=== PATIENT | male | born 1960 | race Caucasian/White ===

== ENCOUNTER 2019-06-25 15:27 | Inpatient (IN) | payer MEDICARE, SELFPAY ==
[2019-06-25 15:28] VITALS: BP 122/74; PULSE 59; RESP 17; TEMP 36.9; O2SAT 96; BMI 36.9
--- NOTE | 2019-06-25 16:01 | ED.DCSUM_ITS ---
History of Present Illness Chief Complaint: Cellulitis Informant: Patient Narrative: She states that began to experience some right lower leg erythema on this past Tuesday. Today swelling and redness are significantly worse and they talk to their doctor and had a DVT study performed that was reportedly negative. They had a video conference with her doctor and it was advised that they come to emergency. Patient notes he does have some surgical hardware in the ankle but is never been a problem for him. He denies any recent injuries or breaks in the skin. He denies any fevers but states he has felt chilled today. This morning there were no blisters on the leg and now it is weeping with multiple blisters developing. He has redness of his proximal thigh but states it is not any different than normal. Past Medical History - Allergies and Home Meds Allergies/Adverse Reactions: Allergies clindamycin HCl [From Cleocin] Adverse Reaction (Verified 06/25/19 15:27) Rash clindamycin palmitate HCl [From Cleocin] Adverse Reaction (Verified 06/25/19 15:27) Rash clindamycin phosphate [From Cleocin] Adverse Reaction (Verified 06/25/19 15:27) Rash Primary Care Physician: Ana Pope DO [Primary Care Provider] - Smoking Status: Former smoker Review of Systems General: Reports: Chills. Denies: Fever, Sweats Eyes: Denies: Visual changes - bilaterally, Diplopia ENT: Denies: Rhinorrhea, Sore throat Cardiovascular: Denies: Chest pain, Palpitations Respiratory: Denies: Dyspnea, Cough, Dyspnea on exertion Gastrointestinal: Denies: Abdominal pain, Nausea, Vomiting, Diarrhea, Melena, Hematochezia Genitourinary: Denies: Dysuria, Hematuria, Frequency Musculoskeletal: Denies: Back pain, Extremity Pain Skin: Reports: Rash, Wounds Neurological: Denies: Headache, Weakness, Numbness Physical Exam Vital Signs/Narrative: Vital Signs Temp Pulse Resp BP Pulse Ox 06/25/19 15:28 98.5 F 59 L 17 122/74 H 96 Inital Vital Signs reviewed: Yes General: Well nourished, Well developed, No Acute Distress Head: Normocephalic, Atraumatic Eyes: Perrl, EOMI ENT: Moist mucous membranes, No rhinorrhea Neck: Supple, Nontender Cardiovascular: Regular rate, Regular rhythm, No murmurs Respiratory: No distress, CTA bilaterally, Chest nontender Abdomen: Soft, Nontender, Nondistended, Normal bowel sounds Back: Nontender, Normal Inspection Extremities: Nontender, No edema Skin: Normal color, - - The right lower leg shows significant swelling. There is also erythema and warmth. There is fluctuant blisters developing and there is leaking of clear fluid. Proximal right thigh shows also erythema but again the patient states this is normal for him. Neurological: Alert, Oriented x3, Cranial nerves II-XII grossly intact Psychological: Normal affect, Normal Mood Diagnostic/Tx/Re-eval - Medical Decision Making The patient seems to have a rapidly progressing cellulitis of the right leg. He received vancomycin and Zosyn. I am in agreement with his PCP that the patient should be admitted for IV antibiotics. Blood cultures were obtained prior to administration. ED Disposition - Plan for ED Patient: Disposition: Acute Care Hospital [facility] Diagnosis: Cellulitis of right leg Referrals: Ana Pope DO [Primary Care Provider] -
[2019-06-25 16:20] LABS: Absolute Lymphocyte Count 0.79 X10^3/uL (0.83-4.51); Absolute Neutrophil Count 6.2 X10^3/uL (2.0-7.7); Basophil# 0.01 X10^3/uL; Basophil% 0.1 % (0-1); Eosinophil# 0.08 X10^3/uL; Hematocrit 37.2 % (40-54); Hemoglobin 12.2 g/dL (13.0-16.5); Lymphocyte # 0.79 X10^3/ul (4.0); Lymphocyte % 9.5 % (19-41); Mean Corp Hgb Conc 32.8 g/dL (32-36); Mean Corpuscular Hgb 30.1 pg (27.0-32.0); Mean Corpuscular Volume 91.9 fL (80-94); Mean Platelet Vol. 10.3 fl (6.2-12.0); Monocyte# 1.18 X10^3/uL; Monocyte% 14.1 % (0-10); NRBC Flagged by Analyzer 0 % (0-5); Neutrophil # 6.24 X10^3/uL (2.7-7.7); Neutrophil % 74.8 % (47-70); Platelet Count 177 K/mm3 (150-450); RBC Distribution Width CV 13.9 % (11.6-14.6); RBC Distribution Width SD 46.8 fl (35.1-43.9); Red Blood Count 4.05 M/mm3 (4.6-6.2); White Blood Count 8.3 K/mm3 (4.4-11.0)
--- NOTE | 2019-06-25 16:30 | RAD_ITS ---
STUDY: X-RAY - RIGHT TIBIA AND FIBULA REASON FOR EXAM: Male, 59 years old. Cellulitis to right leg. Pt c/o redness and swelling to right leg with blisters opening and draining. Reports symptoms starting . TECHNIQUE: 3 view(s) of the tibia and fibula were obtained. COMPARISON: None. FINDINGS: Normal visualized tibia. Normal visualized fibula. Visualized superficial soft tissue edema from the level of the distal femur to the ankle. There is no visualized bony erosion. There is a side plate and cortical screws transfixing the distal fibula. RAD/Tibia & Fibula 2 Views IMPRESSION: Diffuse soft tissue edema consider cellulitis. Electronically Signed: Amber Ibarra MD at 17:11 EDT Tel , Service support ,
[2019-06-25 16:35] LABS: International Normalized Ratio 1.2
[2019-06-25 16:36] LABS: Partial Thromboplast Time 33.5 Seconds (24.1-36.2)
[2019-06-25 16:38] LABS: ALB/GLOB Ratio 0.7 RATIO (0.9-2.4); AST(SGOT) 39 U/L (15-37); Alanine Aminotransfer ALT/SGPT 51 U/L (16-61); Alkaline Phosphatase 76 U/L (45-117); Anion Gap 5 (5-15); BUN 13 mg/dL (7-18); BUN/Creat Ratio 11.1 RATIO (10-20); Calcium,Total 9.2 mg/dL (8.5-10.1); Chloride 100 mmol/L (98-107); Creatinine, Serum 1.17 mg/dL (0.70-1.30); EST Glomerular Filtration Rate 68 mL/min (>60); Est Glom Filt Rate - Afr Amer 82 mL/min (>60); Estimated Creatinine Clearance 64.96 ml/min; Globulin 4.6 g/dL (2.2-4.2); Glucose 103 mg/dL (74-106); Protein, Total 7.6 g/dL (6.4-8.2); Sodium Level 136 mmol/L (136-145)
[2019-06-25 16:42] LABS: Lactic Acid 1.2 mmol/L (0.4-1.9)
[2019-06-25 16:48] VITALS: BP 116/68; PULSE 56; RESP 20; TEMP 37; O2SAT 99
[2019-06-25 17:00] VITALS: BP 123/76; PULSE 62; RESP 18; O2SAT 93
--- NOTE | 2019-06-25 17:33 | HP.PCM_ITS ---
<Radha Larios - Last Filed: 06/25/19 18:16> Problem List (1) HTN (hypertension) Status: Chronic (2) HLD (hyperlipidemia) Status: Chronic (3) Seizure Status: Chronic (4) CVA (cerebral vascular accident) Status: Chronic History of Present Illness Date of Admission: 06/25/19 Chief Complaint: Cellulitis. The patient is a 59 year old M who presents emergency room due to right lower extremity erythema, swelling and redness. Patient initially reported right lower extremity redness on which has increased in severity since that time. He did a video call with primary care provider today who ordered duplex ultrasound right lower extremity which was negative for DVT. Upon assessing via video, physician advised patient to go to emergency room for IV antibiotics. Patient's at bedside states right lower extremity has significantly worsened today with sudden appearance of blistering and drainage. Right lower extremity redness extends to upper thigh. He has had fever, chills which started today. Denies nausea, vomiting. Denies other associated complaints. He denies injury to right lower extremity. He does have a history of right ankle surgery with plate in the past. 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 Past Medical History Past Medical History (Chronic Problems): Chronic Problems HTN (hypertension) (Chronic) HLD (hyperlipidemia) (Chronic) Seizure (Chronic) CVA (cerebral vascular accident) (Chronic) Allergies clindamycin HCl [From Cleocin] Adverse Reaction (Verified 06/25/19 15:27) Rash clindamycin palmitate HCl [From Cleocin] Adverse Reaction (Verified 06/25/19 15:27) Rash clindamycin phosphate [From Cleocin] Adverse Reaction (Verified 06/25/19 15:27) Rash Home Medications: Ambulatory Orders Medication Instructions Recorded Cefdinir 300 mg PO BID 07/02/14 Clonidine HCl [Catapres] 0.2 mg PO BID 07/02/14 Lisinopril/Hydrochlorothiazide 1 tablet PO BID 07/02/14 [Zestoretic 20/12.5 Tablet] Metoprolol Tartrate [Lopressor 50 mg PO DAILY 07/02/14 (Beta Aaron)] Phenytoin Na [Dilantin] 300 mg PO DAILY 07/02/14 Nifedipine [Nifedipine ER] 30 mg PO DAILY 06/25/19 Phenytoin Sodium Extended 100 mg PO QHS 06/25/19 [Dilantin] Potassium Chloride [Klor-Con M20] 20 meq PO BID 06/25/19 Rosuvastatin Calcium 5 mg PO DAILY 06/25/19 Venlafaxine XR [Effexor Xr] 75 mg PO DAILY 06/25/19 Surgical History: - - Right ankle surgery, craniotomy. Lives: Spouse/ Significant Other Smoking Status: Never smoker Alcohol: Occasional Drugs: None - *Family History Maternal History Items: - - No known maternal medical history including cardiac history. Paternal History Items: Heart Disease Review of Systems Constitutional: Reports: Chills, Fever HEENT: Denies: Head Aches, Sinus Congestion, Sinus Drainage Cardiovascular: Denies: Chest Pain, Palpitations Respiratory: Denies: Cough, Shortness of breath at rest, Sputum production Gastrointestinal: Denies: Abdominal Pain, Nausea, Vomiting Genitourinary: Denies: Dysuria Musculoskeletal: Denies: Joint Pain, Joint Tenderness Skin: Reports: - - Right lower extremity redness, swelling and blistering. Neurological: Reports: - - Chronic right-sided weakness and aphasia following previous CVA.. Denies: Focal weakness, Numbness, Tingling Psychiatric: Reports: Depression Hematologic/ Lymphatic: Denies: Easy Bruising, Easy Bleeding VTE Information - Inpt Only VTE Present on Admission: No VTE Mechan Device Prophylaxis: None VTE Pharm Prophylaxis ordered?: Yes - Physical Exam Vitals/I&O's: Vital Signs Temp Pulse Resp BP Pulse Ox 98.6 F 56 L 20 H 116/68 99 06/25/19 16:48 06/25/19 16:48 06/25/19 16:48 06/25/19 16:48 06/25/19 16:48 Oxygen Delivery Method Room Air Weight: 242 lb 15.19 oz Body Mass Index (BMI) 36.9 Intake and Output for Last 24 Hours 06/23/19 06/24/19 06/25/19 23:59 23:59 23:59 Intake Total 100 / 100 Balance 100 / 100 General: Alert, Oriented x3, Cooperative HEENT: Atraumatic, PERRLA, EOMI, Normocephalic Neck: Supple, No JVD, Negative Carotid Bruits Lungs: Clear to auscultation, Normal air movement Cardiovascular: Regular rate, Regular Rhythm, Normal S1, Normal S2, No murmurs Abdomen: Bowel Sounds Present, Soft, Non Tender, Non-Distended Extremities: No clubbing, No cyanosis, Edema - Right lower extremity Skin: - - Diffuse right lower extremity with few bullae, drainage. Redness extending to right upper thigh. Musculoskeletal: No Tenderness to Palpation of Joints or Extremities Neurological: Cranial nerves II-XII grossly intact, Neuro grossly intact, - - RLE weakness, chronic. Aphasia. Psych/Mental Status: Normal Affect, Appropriate Laboratory Results 06/25/19 16:02: WBC 8.3, RBC 4.05 L, Hgb 12.2 L, Hct 37.2 L, MCV 91.9, MCH 30.1, MCHC 32.8, RDW Std Deviation 46.8 H, RDW Coeff of Juju 13.9, Plt Count 177, MPV 10.3, Immature Gran % (Auto) 0.500, Neut % (Auto) 74.8 H, Lymph % (Auto) 9.5 L, [place] % (Auto) 14.1 H, Eos % (Auto) 1.0, Baso % (Auto) 0.1, Absolute Neuts (auto) 6.2, Absolute Lymphs (auto) 0.79 L, Nucleated RBC % 0 06/25/19 16:02: PT 15.0 H, INR 1.2, APTT 33.5 06/25/19 16:02: Sodium 136, Potassium 4.0, Chloride 100, Carbon Dioxide 31.0, Anion Gap 5, BUN 13, Creatinine 1.17, Estim Creat Clear Calc 64.96, Est GFR (MDRD) Af Amer 82, Est GFR (MDRD) Non-Af 68, BUN/Creatinine Ratio 11.1, Glucose 103, Calcium 9.2, Total Bilirubin 0.20, AST 39 H, ALT 51, Alkaline Phosphatase 76, Total Protein 7.6, Albumin 3.0 L, Globulin 4.6 H, Albumin/Globulin Ratio 0.7 L 06/25/19 16:02: Lactic Acid 1.2 Current Medications Vancomycin HCl 2,000 mg/ (Sodium Chloride) 540 mls @ 250 mls/hr IV X1 ONE Stop: 06/25/19 18:39 Last Admin: 06/25/19 17:27 Dose: 250 mls/hr Documented by: Assessment/Plan All Active Problems Cellulitis of right leg (Acute) 1. Right lower extremity cellulitis-outpatient duplex ultrasound negative for DVT. Tib/Fib xray shows soft tissue edema, cellulitis. Afebrile, no leukocytosis. IV vancomycin and IV Zosyn. Wound culture from bullae pending. Blood cultures pending. Elevate right lower extremity. Luis wraps right lower extremity. Consult wound RN. 2. 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 Continue BP regimen, statin. 3. 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 Continue home Dilantin regimen. 4. Hypertension-stable, continue clonidine, lisinopril, HCTZ, metoprolol, nifedipine regimen. 5. Hyperlipidemia-continue statin. 6. Depression-continue venlafaxine regimen. DVT prophylaxis-Lovenox subcu This patient was seen by VERITO Higuera under the supervision of Dr. Jabier osullivan. <Paintsil,[place] - Last Filed: 06/25/19 18:37> History of Present Illness The patient is a 59 year old M [] Past Medical History Allergies clindamycin HCl [From Cleocin] Adverse Reaction (Verified 06/25/19 15:27) Rash clindamycin palmitate HCl [From Cleocin] Adverse Reaction (Verified 06/25/19 15:27) Rash clindamycin phosphate [From Cleocin] Adverse Reaction (Verified 06/25/19 15:27) Rash - Physical Exam Vitals/I&O's: Vital Signs Temp Pulse Resp BP Pulse Ox 98.2 F 65 16 122/69 H 96 06/25/19 18:23 06/25/19 18:23 06/25/19 18:23 06/25/19 18:23 06/25/19 18:23 Oxygen Delivery Method Room Air Weight: 110.2 kg Body Mass Index (BMI) 36.9 Intake and Output for Last 24 Hours 06/23/19 06/24/19 06/25/19 23:59 23:59 23:59 Intake Total 100 / 100 Balance 100 / 100 Laboratory Results 06/25/19 16:02: WBC 8.3, RBC 4.05 L, Hgb 12.2 L, Hct 37.2 L, MCV 91.9, MCH 30.1, MCHC 32.8, RDW Std Deviation 46.8 H, RDW Coeff of Juju 13.9, Plt Count 177, MPV 10.3, Immature Gran % (Auto) 0.500, Neut % (Auto) 74.8 H, Lymph % (Auto) 9.5 L, [place] % (Auto) 14.1 H, Eos % (Auto) 1.0, Baso % (Auto) 0.1, Absolute Neuts (auto) 6.2, Absolute Lymphs (auto) 0.79 L, Nucleated RBC % 0 06/25/19 16:02: PT 15.0 H, INR 1.2, APTT 33.5 06/25/19 16:02: Sodium 136, Potassium 4.0, Chloride 100, Carbon Dioxide 31.0, Anion Gap 5, BUN 13, Creatinine 1.17, Estim Creat Clear Calc 64.96, Est GFR (MDRD) Af Amer 82, Est GFR (MDRD) Non-Af 68, BUN/Creatinine Ratio 11.1, Glucose 103, Calcium 9.2, Total Bilirubin 0.20, AST 39 H, ALT 51, Alkaline Phosphatase 76, Total Protein 7.6, Albumin 3.0 L, Globulin 4.6 H, Albumin/Globulin Ratio 0.7 L 06/25/19 16:02: Lactic Acid 1.2 Current Medications Vancomycin HCl 2,000 mg/ (Sodium Chloride) 540 mls @ 250 mls/hr IV X1 ONE Stop: 06/25/19 18:39 Last Admin: 06/25/19 17:27 Dose: 250 mls/hr Documented by: Assessment/Plan This patient was seen in conjunction with Radha Larios NP. I have independently interviewed and examined the patient and reviewed pertinent historical, laboratory, and other data. Please refer to her note for patient's presentation, findings, and recommendations. 59-year-old male with past medical history of CVA in 2003 with residual right hemiparesis, hypertension who comes in with redness of his right lower extremities as well as swelling ongoing for 4 days associated with some chills but no fever. Patient noticed blisters on his lower extremities this morning. Redness appears to have gotten worse. He denied any nausea or vomiting or diarrhea. He had a telehealth visit with his primary care doctor who recommended coming to the hospital. A Doppler ultrasound done the outpatient was negative for acute DVT in the right lower extremity. Vitals were reviewed -temperature is 98.5 F, pulse 59, blood pressure 122/74, respiratory rate of 17 SPO2 is 96% on room air Physical Exam: Gen: Looks in some discomfort, not pale, not jaundiced, alert oriented x3 CVS:HS I +II, regular, no murmurs RESP: CTA GI: BS present and normal, nontender, no palpable organs EXT:Edema of the right lower leg +4, erythematous, worse in the mid-leg circumferentially, blisters on lower leg, red streaking of the medial aspect of both thighs Labs reviewed: WBC 8.3, neutrophilia, INR 1.2, CMP ASSESSMENT: 1. Severe right leg cellulitis 2. Right hemiparesis secondary to h/o hemorrhagic CVA 3. Post CVA seizure 4. Hypertension 5. Hyperlipidemia 6. Depression Meds reviewed Plan: Continue on vancomycin and Zosyn Elevate right lower extremity Check HbA1c Check phenytoin level Continue rest of home medication for blood pressure and seizure Wound RN consult Follow-up on blood and wound cultures Inpatient E&M: [id number] Init Hosp L3
--- NOTE | 2019-06-25 17:42 | NURSING ---
MED SURG PAINTSIL RT LEG CELLULITIS
[2019-06-25 18:23] VITALS: BP 122/69; PULSE 65; RESP 16; TEMP 36.8; O2SAT 96; BMI 35.8
[2019-06-25 20:00] VITALS: BP 119/85; PULSE 66; RESP 18; TEMP 37.2; O2SAT 99
[2019-06-25 20:04] LABS: Hemoglobin A1c 5.6 % (4.2-6.3)
--- NOTE | 2019-06-25 20:07 | PCM.RX.CS ---
Consult Pharmacy has been consulted to manage selected antiobiotic: Vancomycin Type of Consult: New start Suspected Infection: Skin/Soft tissue Prior Doses of Antibiotics Received/Current Regimen: VANCOMYCIN 2000MG IV X1 IN ED 06/25/19 @1727 Labs: Sodium 136 mmol/L (136-145) 06/25/19 16:02 Potassium 4.0 mmol/L (3.5-5.1) 06/25/19 16:02 Chloride 100 mmol/L (98-107) 06/25/19 16:02 Carbon Dioxide 31.0 mmol/L (21.0-32.0) 06/25/19 16:02 Anion Gap 5 (5-15) 06/25/19 16:02 BUN 13 mg/dL (7-18) 06/25/19 16:02 Creatinine 1.17 mg/dL (0.70-1.30) 06/25/19 16:02 Est GFR (MDRD) Af Amer 82 mL/min (>60) 06/25/19 16:02 Est GFR (MDRD) Non-Af 68 mL/min (>60) 06/25/19 16:02 BUN/Creatinine Ratio 11.1 RATIO (10-20) 06/25/19 16:02 Glucose 103 mg/dL (74-106) 06/25/19 16:02 Weight used for dosin kg Estimated Creatinine Clearance: 65 ML/MIN Goal Trough: 15-20 mcg/mL Pharmacy Plan for Drug Dosing: PLAN/RECOMMENDATIONS 1. Vancomycin 1250mg IV Q12hr to start 06/26/19 @0500 2. Trough prior to 4th total dose per protocol 06/27/19 @0430 3. Pharmacy Service will continue to monitor and adjust dosing as required.
[2019-06-25] MEDS: Phenytoin Na 100 MG Capsule PO (21:22)
[2019-06-25] MEDS: cloNIDine HCl 0.2 MG Tablet PO (21:22)
[2019-06-25] MEDS: hydroCHLOROthiazide 12.5mg 12.5 MG PO (21:23)
[2019-06-25] MEDS: Atorvastatin Calcium 10 MG Tablet PO (21:23)
[2019-06-25] MEDS: Lisinopril 20 MG Tablet PO (21:23)
[2019-06-26 02:00] VITALS: BP 95/57; PULSE 65; RESP 18; TEMP 37.3; O2SAT 97
[2019-06-26 06:00] VITALS: BP 102/72
[2019-06-26 06:29] LABS: Absolute Neutrophil Count 5.2 X10^3/uL (2.0-7.7); Basophil# 0.02 X10^3/uL; Basophil% 0.3 % (0-1); Eosinophil# 0.18 X10^3/uL; Eosinophils% 2.4 % (0-5); Hematocrit 33.7 % (40-54); Hemoglobin 11.3 g/dL (13.0-16.5); Lymphocyte % 13.3 % (19-41); Mean Corp Hgb Conc 33.5 g/dL (32-36); Mean Corpuscular Hgb 30.8 pg (27.0-32.0); Mean Corpuscular Volume 91.8 fL (80-94); Mean Platelet Vol. 10.5 fl (6.2-12.0); Monocyte# 1.03 X10^3/uL; Monocyte% 13.7 % (0-10); NRBC Flagged by Analyzer 0 % (0-5); Neutrophil # 5.22 X10^3/uL (2.7-7.7); Neutrophil % 69.6 % (47-70); Platelet Count 144 K/mm3 (150-450); RBC Distribution Width SD 46.8 fl (35.1-43.9); Red Blood Count 3.67 M/mm3 (4.6-6.2); White Blood Count 7.5 K/mm3 (4.4-11.0)
[2019-06-26 06:57] LABS: ALB/GLOB Ratio 0.6 RATIO (0.9-2.4); AST(SGOT) 29 U/L (15-37); Alanine Aminotransfer ALT/SGPT 43 U/L (16-61); Albumin, Serum 2.5 g/dL (3.2-5.0); Alkaline Phosphatase 75 U/L (45-117); Anion Gap 6 (5-15); BUN 11 mg/dL (7-18); Calcium,Total 8.8 mg/dL (8.5-10.1); Chloride 105 mmol/L (98-107); Creatinine, Serum 0.74 mg/dL (0.70-1.30); EST Glomerular Filtration Rate 116 mL/min (>60); Est Glom Filt Rate - Afr Amer 140 mL/min (>60); Globulin 4.2 g/dL (2.2-4.2); Glucose 102 mg/dL (74-106); Protein, Total 6.7 g/dL (6.4-8.2); Sodium Level 138 mmol/L (136-145)
[2019-06-26 09:00] VITALS: BP 107/61; PULSE 70; RESP 18; TEMP 36.9; O2SAT 96
[2019-06-26] MEDS: Phenytoin Na 100 MG Capsule 300 MG PO (09:02)
[2019-06-26 09:03] VITALS: BP 107/61; PULSE 70
[2019-06-26] MEDS: Venlafaxine XR 75 MG Capsule PO (09:03)
[2019-06-26] MEDS: NIFEdipine 30 MG Tablet PO (09:04)
[2019-06-26] MEDS: Lisinopril 20 MG Tablet PO ×2 (09:04→21:14)
[2019-06-26] MEDS: Enoxaparin 40 MG/0.4 ML Syringe SC (09:04)
[2019-06-26] MEDS: hydroCHLOROthiazide 12.5mg 12.5 MG PO ×2 (09:04→21:14)
--- NOTE | 2019-06-26 09:07 | NURSING ---
wound photo: right lower leg
--- NOTE | 2019-06-26 09:07 | NURSING ---
wound photo: right lower leg
--- NOTE | 2019-06-26 09:52 | PCM.PROGNOTE ---
<Radha Larios - Last Filed: 06/26/19 10:02> Patient Problems: Active and Suspected Problems Cellulitis of right leg (Acute) Subjective: Patient seen and examined. Denies fever, chills. Right lower extremity redness and swelling improving. No other complaints. - Physical Exam Vitals/I&O's: Vital Signs Temp Pulse Resp BP Pulse Ox 99.1 F 70 18 107/61 97 06/26/19 02:00 06/26/19 09:03 06/26/19 02:00 06/26/19 09:03 06/26/19 02:00 Oxygen Delivery Method Room Air Weight: 233 lb 7.512 oz Body Mass Index (BMI) 35.8 Intake and Output for Last 24 Hours 06/24/19 06/25/19 06/26/19 23:59 23:59 23:59 Intake Total 640 / 1140 1075 / 1075 Output Total 1700 / 1700 Balance 640 / -10 -625 / -625 General: Alert, Oriented x3, Cooperative HEENT: Atraumatic, PERRLA, EOMI, Normocephalic Neck: Supple, No JVD, Negative Carotid Bruits Lungs: Clear to auscultation, Normal air movement Cardiovascular: Regular rate, Regular Rhythm, Normal S1, Normal S2, No murmurs Abdomen: Bowel Sounds Present, Soft, Non Tender Extremities: No clubbing, No cyanosis, Capillary Refill Less than 3 Seconds, Edema - RLE Skin: No rashes, No breakdown, - - Diffuse right lower extremity redness with few bullae, drainage. Upper thigh redness improving. Musculoskeletal: No Tenderness to Palpation of Joints or Extremities Neurological: Cranial nerves II-XII grossly intact, Neuro grossly intact, - - RLE weakness, chronic. Aphasia. Psych/Mental Status: Normal Affect, Appropriate Laboratory Results 06/25/19 16:02: WBC 8.3, RBC 4.05 L, Hgb 12.2 L, Hct 37.2 L, MCV 91.9, MCH 30.1, MCHC 32.8, RDW Std Deviation 46.8 H, RDW Coeff of Juju 13.9, Plt Count 177, MPV 10.3, Immature Gran % (Auto) 0.500, Neut % (Auto) 74.8 H, Lymph % (Auto) 9.5 L, Childress % (Auto) 14.1 H, Eos % (Auto) 1.0, Baso % (Auto) 0.1, Absolute Neuts (auto) 6.2, Absolute Lymphs (auto) 0.79 L, Nucleated RBC % 0 06/25/19 16:02: PT 15.0 H, INR 1.2, APTT 33.5 06/25/19 16:02: Sodium 136, Potassium 4.0, Chloride 100, Carbon Dioxide 31.0, Anion Gap 5, BUN 13, Creatinine 1.17, Estim Creat Clear Calc 64.96, Est GFR (MDRD) Af Amer 82, Est GFR (MDRD) Non-Af 68, BUN/Creatinine Ratio 11.1, Glucose 103, Calcium 9.2, Total Bilirubin 0.20, AST 39 H, ALT 51, Alkaline Phosphatase 76, Total Protein 7.6, Albumin 3.0 L, Globulin 4.6 H, Albumin/Globulin Ratio 0.7 L 06/25/19 16:02: Lactic Acid 1.2 06/25/19 16:02: Phenytoin 7.0 L 06/25/19 16:02: Hemoglobin A1c 5.6 06/26/19 05:57: WBC 7.5, RBC 3.67 L, Hgb 11.3 L, Hct 33.7 L, MCV 91.8, MCH 30.8, MCHC 33.5, RDW Std Deviation 46.8 H, RDW Coeff of Juju 14.0, Plt Count 144 L, MPV 10.5, Immature Gran % (Auto) 0.700, Neut % (Auto) 69.6, Lymph % (Auto) 13.3 L, Childress % (Auto) 13.7 H, Eos % (Auto) 2.4, Baso % (Auto) 0.3, Absolute Neuts (auto) 5.2, Absolute Lymphs (auto) 1.00, Nucleated RBC % 0 06/26/19 05:57: Sodium 138, Potassium 4.0, Chloride 105, Carbon Dioxide 27.0, Anion Gap 6, BUN 11, Creatinine 0.74, Estim Creat Clear Calc 102.70, Est GFR (MDRD) Af Amer 140, Est GFR (MDRD) Non-Af 116, BUN/Creatinine Ratio 15.0, Glucose 102, Calcium 8.8, Total Bilirubin 0.40, AST 29, ALT 43, Alkaline Phosphatase 75, Total Protein 6.7, Albumin 2.5 L, Globulin 4.2, Albumin/Globulin Ratio 0.6 L 06/26/19 07:55: S.aureus Protein A PCR Pending, MRSA (PCR) Pending Current Medications Acetaminophen (Tylenol) 650 mg PO Q6H PRN PRN PRN Reason: Pain Score 1-10/Temp > 100.7 F Atorvastatin Calcium (Lipitor) 10 mg PO QHS [facility] Last Admin: 06/25/19 21:23 Dose: 10 mg Documented by: Clonidine (Catapres) 0.2 mg PO BID [facility] Last Admin: 06/26/19 09:02 Dose: Not Given Documented by: Dextrose (D50w Syringe) 0 gm IV X1 PRN; Protocol PRN Reason: Hypoglycemia Enoxaparin Sodium (Lovenox) 40 mg SC DAILY [facility] Last Admin: 06/26/19 09:04 Dose: 40 mg Documented by: Glucagon () 1 mg IM .X1 PRN PRN Reason: Hypoglycemia Hydrochlorothiazide () 12.5 mg PO BID [facility] Last Admin: 06/26/19 09:04 Dose: 12.5 mg Documented by: Vancomycin IV Pharmacy to Dose (1 ea/ Sodium Chloride) 500 mls @ 250 mls/hr IV PRN PRN; Protocol PRN Reason: Rx to Dose Piperacillin Sod/Tazobactam (Sod 3.375 gm/ Sodium Chloride) 50 mls @ 12.5 mls/hr IV Q8 [facility] Last Admin: 06/26/19 06:35 Dose: 12.5 mls/hr Documented by: Vancomycin HCl 1,250 mg/ (Sodium Chloride) 275 mls @ 167 mls/hr IV Q12H [facility] Last Infusion: 06/26/19 06:36 Dose: Infused Documented by: Lisinopril (Zestril) 20 mg PO BID [facility] Last Admin: 06/26/19 09:04 Dose: 20 mg Documented by: Magnesium Hydroxide (Milk Of Magnesia) 30 ml PO DAILY PRN PRN PRN Reason: Constipation Metoprolol Tartrate (Lopressor (Beta Aaron)) 50 mg PO DAILY [facility] Last Admin: 06/26/19 09:03 Dose: Not Given Documented by: Nifedipine (Procardia Xl) 30 mg PO DAILY [facility] Last Admin: 06/26/19 09:04 Dose: 30 mg Documented by: Nitroglycerin (Nitrostat) 0.4 mg SUBLINGUAL Q5M PRN PRN Reason: CARDIAC/CHEST PAIN Nutritional Formula (Lactose Free) (Ensure Enlive) 120 ml PO 4X/DAY [facility] Last Admin: 06/26/19 09:05 Dose: Not Given Documented by: Ondansetron HCl (Zofran) 4 mg IV Q8H PRN PRN PRN Reason: NAUSEA/VOMITING Phenytoin Sodium (Dilantin) 300 mg PO DAILY [facility] Last Admin: 06/26/19 09:02 Dose: 300 mg Documented by: Phenytoin Sodium (Dilantin) 100 mg PO QHS [facility] Last Admin: 06/25/19 21:22 Dose: 100 mg Documented by: Potassium Chloride (K-Dur) 20 meq PO BIDCM [facility] Last Admin: 06/26/19 09:01 Dose: 20 meq Documented by: Psyllium Hydrophilic Mucilloid (Metamucil) 1 packet PO DAILY PRN PRN PRN Reason: Constipation Sodium Chloride () 10 - 40 ml IV UD PRN PRN Reason: SALINE FLUSH Venlafaxine HCl (Effexor Xr) 75 mg PO DAILY [facility] Last Admin: 06/26/19 09:03 Dose: 75 mg Documented by: Medical Necessity - Tobacco Use Smoking Status: Never smoker Tobacco Use: Chew Assessment/Plan All Active Problems Cellulitis of right leg (Acute) 1. Right lower extremity cellulitis-outpatient duplex ultrasound negative for DVT. Tib/Fib xray shows soft tissue edema, cellulitis. Afebrile, no leukocytosis. IV vancomycin and IV Zosyn. Wound culture from bullae pending. Blood cultures pending. Elevate right lower extremity. Luis wraps right lower extremity. Consult wound RN. 2. 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 Continue BP regimen, statin. 3. 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 Continue home Dilantin regimen. 4. Hypertension-stable, continue clonidine, lisinopril, HCTZ, metoprolol, nifedipine regimen. 5. Hyperlipidemia-continue statin. 6. Depression-continue venlafaxine regimen. DVT prophylaxis-Lovenox subcu This patient was seen by VERITO Higuera under the supervision of Dr. Howell. <Devonte Howell - Last Filed: 06/26/19 14:07> - Physical Exam Vitals/I&O's: Vital Signs Temp Pulse Resp BP Pulse Ox 36.9 C 70 18 107/61 96 06/26/19 09:00 06/26/19 09:03 06/26/19 09:00 06/26/19 09:03 06/26/19 09:00 Oxygen Delivery Method Room Air Weight: 105.9 kg Body Mass Index (BMI) 35.8 Intake and Output for Last 24 Hours 06/24/19 06/25/19 06/26/19 23:59 23:59 23:59 Intake Total 640 / 1140 1425 / 1425 Output Total 1925 / 1925 Balance 640 / -10 -500 / -500 General: Alert, Cooperative HEENT: Atraumatic, Normocephalic Neck: No Nodes, Trachea Midline Lungs: Clear to auscultation, Normal air movement, No rhonchi, No wheeze Cardiovascular: Regular rate, Regular Rhythm, Normal S1, Normal S2, No murmurs Abdomen: Bowel Sounds Present, Soft, Non Tender, Non-Distended Extremities: No clubbing, No cyanosis, Edema Neurological: - Psych/Mental Status: Normal Affect, Appropriate Microbiology Past 72 Hours 06/25/19 16:05 Skin - Leg Gram Stain - Final 06/25/19 16:05 Skin - Leg Wound Culture - Preliminary No growth aerobically. Laboratory Results 06/25/19 16:02: WBC 8.3, RBC 4.05 L, Hgb 12.2 L, Hct 37.2 L, MCV 91.9, MCH 30.1, MCHC 32.8, RDW Std Deviation 46.8 H, RDW Coeff of Juju 13.9, Plt Count 177, MPV 10.3, Immature Gran % (Auto) 0.500, Neut % (Auto) 74.8 H, Lymph % (Auto) 9.5 L, Childress % (Auto) 14.1 H, Eos % (Auto) 1.0, Baso % (Auto) 0.1, Absolute Neuts (auto) 6.2, Absolute Lymphs (auto) 0.79 L, Nucleated RBC % 0 06/25/19 16:02: PT 15.0 H, INR 1.2, APTT 33.5 06/25/19 16:02: Sodium 136, Potassium 4.0, Chloride 100, Carbon Dioxide 31.0, Anion Gap 5, BUN 13, Creatinine 1.17, Estim Creat Clear Calc 64.96, Est GFR (MDRD) Af Amer 82, Est GFR (MDRD) Non-Af 68, BUN/Creatinine Ratio 11.1, Glucose 103, Calcium 9.2, Total Bilirubin 0.20, AST 39 H, ALT 51, Alkaline Phosphatase 76, Total Protein 7.6, Albumin 3.0 L, Globulin 4.6 H, Albumin/Globulin Ratio 0.7 L 06/25/19 16:02: Lactic Acid 1.2 06/25/19 16:02: Phenytoin 7.0 L 06/25/19 16:02: Hemoglobin A1c 5.6 06/26/19 05:57: WBC 7.5, RBC 3.67 L, Hgb 11.3 L, Hct 33.7 L, MCV 91.8, MCH 30.8, MCHC 33.5, RDW Std Deviation 46.8 H, RDW Coeff of Juju 14.0, Plt Count 144 L, MPV 10.5, Immature Gran % (Auto) 0.700, Neut % (Auto) 69.6, Lymph % (Auto) 13.3 L, Childress % (Auto) 13.7 H, Eos % (Auto) 2.4, Baso % (Auto) 0.3, Absolute Neuts (auto) 5.2, Absolute Lymphs (auto) 1.00, Nucleated RBC % 0 06/26/19 05:57: Sodium 138, Potassium 4.0, Chloride 105, Carbon Dioxide 27.0, Anion Gap 6, BUN 11, Creatinine 0.74, Estim Creat Clear Calc 102.70, Est GFR (MDRD) Af Amer 140, Est GFR (MDRD) Non-Af 116, BUN/Creatinine Ratio 15.0, Glucose 102, Calcium 8.8, Total Bilirubin 0.40, AST 29, ALT 43, Alkaline Phosphatase 75, Total Protein 6.7, Albumin 2.5 L, Globulin 4.2, Albumin/Globulin Ratio 0.6 L 06/26/19 07:55: S.aureus Protein A PCR NEGATIVE, MRSA (PCR) Negative Current Medications Acetaminophen (Tylenol) 650 mg PO Q6H PRN PRN PRN Reason: Pain Score 1-10/Temp > 100.7 F Atorvastatin Calcium (Lipitor) 10 mg PO QHS [facility] Last Admin: 06/25/19 21:23 Dose: 10 mg Documented by: Clonidine (Catapres) 0.2 mg PO BID [facility] Last Admin: 06/26/19 09:02 Dose: Not Given Documented by: Dextrose (D50w Syringe) 0 gm IV X1 PRN; Protocol PRN Reason: Hypoglycemia Enoxaparin Sodium (Lovenox) 40 mg SC DAILY [facility] Last Admin: 06/26/19 09:04 Dose: 40 mg Documented by: Glucagon () 1 mg IM .X1 PRN PRN Reason: Hypoglycemia Hydrochlorothiazide () 12.5 mg PO BID [facility] Last Admin: 06/26/19 09:04 Dose: 12.5 mg Documented by: Vancomycin IV Pharmacy to Dose (1 ea/ Sodium Chloride) 500 mls @ 250 mls/hr IV PRN PRN; Protocol PRN Reason: Rx to Dose Piperacillin Sod/Tazobactam (Sod 3.375 gm/ Sodium Chloride) 50 mls @ 12.5 mls/hr IV Q8 [facility] Last Admin: 06/26/19 13:36 Dose: 12.5 mls/hr Documented by: Vancomycin HCl 1,250 mg/ (Sodium Chloride) 275 mls @ 167 mls/hr IV Q12H [facility] Last Infusion: 06/26/19 06:36 Dose: Infused Documented by: Lisinopril (Zestril) 20 mg PO BID [facility] Last Admin: 06/26/19 09:04 Dose: 20 mg Documented by: Magnesium Hydroxide (Milk Of Magnesia) 30 ml PO DAILY PRN PRN PRN Reason: Constipation Metoprolol Tartrate (Lopressor (Beta Aaron)) 50 mg PO DAILY [facility] Last Admin: 06/26/19 09:03 Dose: Not Given Documented by: Nifedipine (Procardia Xl) 30 mg PO DAILY [facility] Last Admin: 06/26/19 09:04 Dose: 30 mg Documented by: Nitroglycerin (Nitrostat) 0.4 mg SUBLINGUAL Q5M PRN PRN Reason: CARDIAC/CHEST PAIN Nutritional Formula (Noah - Santa Claus Flavor) [facility] Ondansetron HCl (Zofran) 4 mg IV Q8H PRN PRN PRN Reason: NAUSEA/VOMITING Phenytoin Sodium (Dilantin) 300 mg PO DAILY [facility] Last Admin: 06/26/19 09:02 Dose: 300 mg Documented by: Phenytoin Sodium (Dilantin) 100 mg PO QHS [facility] Last Admin: 06/25/19 21:22 Dose: 100 mg Documented by: Potassium Chloride (K-Dur) 20 meq PO BIDCM [facility] Last Admin: 06/26/19 09:01 Dose: 20 meq Documented by: Psyllium Hydrophilic Mucilloid (Metamucil) 1 packet PO DAILY PRN PRN PRN Reason: Constipation Sodium Chloride () 10 - 40 ml IV UD PRN PRN Reason: SALINE FLUSH Venlafaxine HCl (Effexor Xr) 75 mg PO DAILY [facility] Last Admin: 06/26/19 09:03 Dose: 75 mg Documented by: Assessment/Plan Patient seen and examined independently. Data reviewed. I agree with the above note by the nurse practitioner. 1. Right lower extremity cellulitis: Area overall appears to be withdraw from the lines of demarcation. Patient does have a very superficial collection of pus on his right boyer. Discussed with the wound care feels that just with continued wound care that that should begin to open up. Continue with broad-spectrum antibiotics for now but anticipate de-escalation here in the near future. Inpatient E&M: 07310 Subs Hosp L2
--- NOTE | 2019-06-26 10:50 | CASEMGMT ---
CLAY CM Face to Face with patient for initial transition planning/care coordination assessment. RN CM introduced self and role at [facility]. Patient lying in bed, alert and oriented. Patient requesting RN CM call to complete assessment. RN CM called Noris and she is willing to participate in assessment. Care providers, pharmacy, and demographics verified. wishes for patient to discharge home, denies need for home health at this time. states she has no further needs or concerns at this time. CM to follow for discharge planning needs that may arise. PCP: Toshia Casillas Pharmacy: [facility] Insurance: [employer] [facility] Prescription Benefit: yes Living Will/HPOA: none LNOK: Living Arrangements: Patient lives with in a house with bed and bath on main level. 3 steps to enter the home with railing. Patient is independent at home for self care. Transportation: DME/HHC: states that patient has access to walker, cane, shower chair, wheelchair at home. denies previous HHC or SNF Disposition Plan: Patient to discharge home with family support and follow-up plans in place. Jailyn PABON, RN, CM
[2019-06-26 12:42] LABS: M R Staph aureus DNA By PCR Negative (Negative); Probe Check PASS; Specimen Processing Control PASS; Staph aureus DNA By PCR NEGATIVE (Negative)
[2019-06-26 14:45] VITALS: BP 112/61; PULSE 72; RESP 16; TEMP 36.9; O2SAT 95
[2019-06-26 19:50] VITALS: BP 112/70; PULSE 80; RESP 18; TEMP 37.3; O2SAT 95
[2019-06-26] MEDS: Atorvastatin Calcium 10 MG Tablet PO (21:14)
[2019-06-26] MEDS: Phenytoin Na 100 MG Capsule PO (21:16)
[2019-06-26] MEDS: cloNIDine HCl 0.2 MG Tablet PO (21:16)
[2019-06-27] VITALS (8 sets, daily range): BP systolic 104–138; BP diastolic 57–71; PULSE 60–90; RESP 16–18; TEMP 37–37.2; O2SAT 94–97
[2019-06-27 05:48] LABS: Vancomycin, Trough Level 11.4 ug/mL (5.0-15.0)
--- NOTE | 2019-06-27 06:01 | PCM.RX.CS ---
Consult Pharmacy has been consulted to manage selected antiobiotic: Vancomycin Type of Consult: Follow-up Labs: Sodium 138 mmol/L (136-145) 06/26/19 05:57 Potassium 4.0 mmol/L (3.5-5.1) 06/26/19 05:57 Chloride 105 mmol/L (98-107) 06/26/19 05:57 Carbon Dioxide 27.0 mmol/L (21.0-32.0) 06/26/19 05:57 Anion Gap 6 (5-15) 06/26/19 05:57 BUN 11 mg/dL (7-18) 06/26/19 05:57 Creatinine 0.74 mg/dL (0.70-1.30) 06/26/19 05:57 Est GFR (MDRD) Af Amer 140 mL/min (>60) 06/26/19 05:57 Est GFR (MDRD) Non-Af 116 mL/min (>60) 06/26/19 05:57 BUN/Creatinine Ratio 15.0 RATIO (10-20) 06/26/19 05:57 Glucose 102 mg/dL (74-106) 06/26/19 05:57 Vancomycin Trough 11.4 ug/mL (5.0-15.0) 06/27/19 04:39 Microbiology: Microbiology 06/25/19 16:05 Skin - Leg Gram Stain - Final 06/25/19 16:05 Skin - Leg Wound Culture - Preliminary No growth aerobically. Goal Trough: 15-20 mcg/mL Pharmacy Plan for Drug Dosing: Pharmacy Service will continue to monitor and adjust dosing as required. TROUGH 11.4 AND SCr .74 INCREASE TO 1750MG Q12H AND REDRAW TROUGH 06/28 @ 0230 Follow-Up Labs: Trough Vancomycin Labs to be done on [date and time ordered]: 06/280
[2019-06-27] MEDS: Metoprolol Tartrate 50 MG Tablet PO (09:00)
[2019-06-27] MEDS: cloNIDine HCl 0.2 MG Tablet PO ×2 (09:00→22:18)
[2019-06-27] MEDS: NIFEdipine 30 MG Tablet PO (09:01)
[2019-06-27] MEDS: Lisinopril 20 MG Tablet PO ×2 (09:01→22:18)
[2019-06-27] MEDS: Enoxaparin 40 MG/0.4 ML Syringe SC (09:01)
[2019-06-27] MEDS: hydroCHLOROthiazide 12.5mg 12.5 MG PO ×2 (09:07→22:18)
[2019-06-27] MEDS: Phenytoin Na 100 MG Capsule 300 MG PO (09:07)
[2019-06-27] MEDS: Venlafaxine XR 75 MG Capsule PO (09:07)
--- NOTE | 2019-06-27 11:00 | CASEMGMT ---
Addendum entered by Jailyn Meza 06/27/19 12:05: Call to , Noris, and updated on all as well as tentaive d/c tomorrow at this time, voices understanding. voices no further questions/concerns/needs at this time. Reynaldo WILLIAMSON CM Addendum entered by Jailyn Meza 06/27/19 11:54: Call back from homero Gerardo at [facility], and he states that they do not have ABD pads or adaptic but do have petroleum 3x3 pads and sterile surgical cushion comfort pads 5x9. Per Carly wound RN, these are equivalent to the original order and will work. Reynaldo WILLIAMSON CM Original Note: Call to pt's to discuss discharge plan at this time as pt has difficulty with communication from previous CVA. This CLAY FELICIANO advised pt's about wound RN/therapy recommendation for [facility] at this time. is agreeable to [facility] and after verbal list of in-network provided via phone at this time. states they would like [facility] at this time and order placed for SN, PT/OT at this time. Script obtained for dressing supplies and would like it faxed to [facility] to see if they have all of the supplies in stock. Call to pharmacist at [facility] and he is aware of script at this time and will notify this RN CM whether they have all in stock. Call to Peri at [facility] at this time to notify of referral and to call for any communication, voices understanding. Plan is for discharge tomorrow. does state that she has not received a call from the RN's at all today or yesterday to update her on pt. Abhijit RN is aware and states will call when she is able. Reynaldo WILLIAMSON CM
--- NOTE | 2019-06-27 11:33 | PN_ITS ---
<Radha Larios - Last Filed: 06/27/19 11:41> Patient Problems: Active and Suspected Problems Cellulitis of right leg (Acute) Subjective: Patient seen and examined. Denies fever, chills. Right lower extremity redness and swelling significantly improved. - Physical Exam Vitals/I&O's: Vital Signs Temp Pulse Resp BP Pulse Ox 98.8 F 71 16 117/71 96 06/27/19 08:56 06/27/19 09:00 06/27/19 08:56 06/27/19 08:56 06/27/19 08:56 Oxygen Delivery Method Room Air Weight: 235 lb 0.204 oz Body Mass Index (BMI) 35.8 Intake and Output for Last 24 Hours 06/25/19 06/26/19 06/27/19 23:59 23:59 23:59 Intake Total 640 / 1140 2150 / 2150 975 / 975 Output Total 2175 / 2175 2150 / 2150 Balance 640 / -10 -25 / -25 -1175 / -1175 General: Alert, Oriented x3, Cooperative HEENT: Atraumatic, PERRLA, EOMI, Normocephalic Neck: Supple, No JVD, Negative Carotid Bruits Lungs: Clear to auscultation, Normal air movement Cardiovascular: Regular rate, Regular Rhythm, Normal S1, Normal S2, No murmurs Abdomen: Bowel Sounds Present, Soft, Non Tender, Non-Distended Extremities: No clubbing, No cyanosis, Capillary Refill Less than 3 Seconds, Edema - Right lower extremity Skin: No rashes, No breakdown, - - Right lower extremity redness and swelling improving. Musculoskeletal: No Tenderness to Palpation of Joints or Extremities Neurological: Cranial nerves II-XII grossly intact, Neuro grossly intact Psych/Mental Status: Normal Affect, Appropriate Microbiology Past 72 Hours 06/25/19 16:05 Skin - Leg Gram Stain - Final 06/25/19 16:05 Skin - Leg Wound Culture - Preliminary No growth-Final to follow Laboratory Results 06/26/19 07:55: S.aureus Protein A PCR NEGATIVE, MRSA (PCR) Negative 06/27/19 04:39: Vancomycin Trough 11.4 Current Medications Acetaminophen (Tylenol) 650 mg PO Q6H PRN PRN PRN Reason: Pain Score 1-10/Temp > 100.7 F Atorvastatin Calcium (Lipitor) 10 mg PO QHS [facility] Last Admin: 06/26/19 21:14 Dose: 10 mg Documented by: Clonidine (Catapres) 0.2 mg PO BID [facility] Last Admin: 06/27/19 09:00 Dose: 0.2 mg Documented by: Dextrose (D50w Syringe) 0 gm IV X1 PRN; Protocol PRN Reason: Hypoglycemia Enoxaparin Sodium (Lovenox) 40 mg SC DAILY [facility] Last Admin: 06/27/19 09:01 Dose: 40 mg Documented by: Glucagon () 1 mg IM .X1 PRN PRN Reason: Hypoglycemia Hydrochlorothiazide () 12.5 mg PO BID [facility] Last Admin: 06/27/19 09:07 Dose: 12.5 mg Documented by: Vancomycin IV Pharmacy to Dose (1 ea/ Sodium Chloride) 500 mls @ 250 mls/hr IV PRN PRN; Protocol PRN Reason: Rx to Dose Piperacillin Sod/Tazobactam (Sod 3.375 gm/ Sodium Chloride) 50 mls @ 12.5 mls/hr IV Q8 [facility] Last Infusion: 06/27/19 10:55 Dose: Infused Documented by: Vancomycin HCl 1,250 mg/ (Sodium Chloride) 275 mls @ 167 mls/hr IV Q12H [facility] Last Infusion: 06/27/19 06:20 Dose: Infused Documented by: Vancomycin HCl 1,750 mg/ (Sodium Chloride) 535 mls @ 250 mls/hr IV Q12H [facility] Lisinopril (Zestril) 20 mg PO BID [facility] Last Admin: 06/27/19 09:01 Dose: 20 mg Documented by: Magnesium Hydroxide (Milk Of Magnesia) 30 ml PO DAILY PRN PRN PRN Reason: Constipation Metoprolol Tartrate (Lopressor (Beta Aaron)) 50 mg PO DAILY [facility] Last Admin: 06/27/19 09:00 Dose: 50 mg Documented by: Nifedipine (Procardia Xl) 30 mg PO DAILY [facility] Last Admin: 06/27/19 09:01 Dose: 30 mg Documented by: Nitroglycerin (Nitrostat) 0.4 mg SUBLINGUAL Q5M PRN PRN Reason: CARDIAC/CHEST PAIN Nutritional Formula ([facility] - [place] Fl[facility] Admin: 06/27/19 09:04 Dose: 1 packet Documented by: Ondansetron HCl (Zofran) 4 mg IV Q8H PRN PRN PRN Reason: NAUSEA/VOMITING Phenytoin Sodium (Dilantin) 300 mg PO DAILY [facility] Last Admin: 06/27/19 09:07 Dose: 300 mg Documented by: Phenytoin Sodium (Dilantin) 100 mg PO QHS [facility] Last Admin: 06/26/19 21:16 Dose: 100 mg Documented by: Potassium Chloride (K-Dur) 20 meq PO BIDCM [facility] Last Admin: 06/27/19 09:01 Dose: 20 meq Documented by: Psyllium Hydrophilic Mucilloid (Metamucil) 1 packet PO DAILY PRN PRN PRN Reason: Constipation Sodium Chloride () 10 - 40 ml IV UD PRN PRN Reason: SALINE FLUSH Venlafaxine HCl (Effexor Xr) 75 mg PO DAILY [facility] Last Admin: 06/27/19 09:07 Dose: 75 mg Documented by: Medical Necessity - Tobacco Use Smoking Status: Never smoker Tobacco Use: Chew Assessment/Plan All Active Problems Cellulitis of right leg (Acute) 1. Right lower extremity cellulitis-outpatient duplex ultrasound negative for DVT. Tib/Fib xray shows soft tissue edema, cellulitis. Afebrile, no leukocytosis. IV vancomycin and IV Zosyn. Wound culture shows no growth thus far. Elevate right lower extremity. Luis wraps right lower extremity. Consult wound RN. Anticipate transition to oral regimen tomorrow with possible discharge if continued improvement. Home health care to be arranged at discharge. 2. 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 Continue BP regimen, statin. 3. 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 Continue home Dilantin regimen. 4. Hypertension-stable, continue clonidine, lisinopril, HCTZ, metoprolol, nifedipine regimen. 5. Hyperlipidemia-continue statin. 6. Depression-continue venlafaxine regimen. DVT prophylaxis-Lovenox subcu This patient was seen by VERITO Higuera under the supervision of Dr. Howell. <Devonte Howell - Last Filed: 06/27/19 13:28> - Physical Exam Vitals/I&O's: Vital Signs Temp Pulse Resp BP Pulse Ox 37.1 C 71 16 117/71 96 06/27/19 08:56 06/27/19 09:00 06/27/19 08:56 06/27/19 08:56 06/27/19 08:56 Oxygen Delivery Method Room Air Weight: 106.6 kg Body Mass Index (BMI) 35.8 Intake and Output for Last 24 Hours 06/25/19 06/26/19 06/27/19 23:59 23:59 23:59 Intake Total 640 / 1140 2150 / 2150 975 / 975 Output Total 2175 / 2175 2550 / 2550 Balance 640 / -10 -25 / -25 -1575 / -1575 General: Alert, Cooperative HEENT: Atraumatic, Normocephalic Lungs: Clear to auscultation, Normal air movement Cardiovascular: Regular rate, Regular Rhythm, Normal S1, Normal S2, No murmurs Abdomen: Bowel Sounds Present, Soft, Non Tender, Non-Distended Extremities: No clubbing, No cyanosis, Edema Skin: No rashes, No breakdown, - Neurological: Cranial nerves II-XII grossly intact, Neuro grossly intact Psych/Mental Status: Normal Affect, Appropriate Microbiology Past 72 Hours 06/25/19 16:05 Skin - Leg Gram Stain - Final 06/25/19 16:05 Skin - Leg Wound Culture - Preliminary No growth-Final to follow Laboratory Results 06/27/19 04:39: Vancomycin Trough 11.4 Current Medications Acetaminophen (Tylenol) 650 mg PO Q6H PRN PRN PRN Reason: Pain Score 1-10/Temp > 100.7 F Atorvastatin Calcium (Lipitor) 10 mg PO QHS [facility] Last Admin: 06/26/19 21:14 Dose: 10 mg Documented by: Clonidine (Catapres) 0.2 mg PO BID [facility] Last Admin: 06/27/19 09:00 Dose: 0.2 mg Documented by: Dextrose (D50w Syringe) 0 gm IV X1 PRN; Protocol PRN Reason: Hypoglycemia Enoxaparin Sodium (Lovenox) 40 mg SC DAILY [facility] Last Admin: 06/27/19 09:01 Dose: 40 mg Documented by: Glucagon () 1 mg IM .X1 PRN PRN Reason: Hypoglycemia Hydrochlorothiazide () 12.5 mg PO BID [facility] Last Admin: 06/27/19 09:07 Dose: 12.5 mg Documented by: Vancomycin IV Pharmacy to Dose (1 ea/ Sodium Chloride) 500 mls @ 250 mls/hr IV PRN PRN; Protocol PRN Reason: Rx to Dose Piperacillin Sod/Tazobactam (Sod 3.375 gm/ Sodium Chloride) 50 mls @ 12.5 mls/hr IV Q8 [facility] Last Infusion: 06/27/19 10:55 Dose: Infused Documented by: Vancomycin HCl 1,750 mg/ (Sodium Chloride) 535 mls @ 250 mls/hr IV Q12H [facility] Last Admin: 06/27/19 13:05 Dose: 250 mls/hr Documented by: Lisinopril (Zestril) 20 mg PO BID [facility] Last Admin: 06/27/19 09:01 Dose: 20 mg Documented by: Magnesium Hydroxide (Milk Of Magnesia) 30 ml PO DAILY PRN PRN PRN Reason: Constipation Metoprolol Tartrate (Lopressor (Beta Aaron)) 50 mg PO DAILY [facility] Last Admin: 06/27/19 09:00 Dose: 50 mg Documented by: Nifedipine (Procardia Xl) 30 mg PO DAILY [facility] Last Admin: 06/27/19 09:01 Dose: 30 mg Documented by: Nitroglycerin (Nitrostat) 0.4 mg SUBLINGUAL Q5M PRN PRN Reason: CARDIAC/CHEST PAIN Nutritional Formula (Noah - [place] Flavor) 1 packet PO BIDCM [facility] Last Admin: 06/27/19 09:04 Dose: 1 packet Documented by: Ondansetron HCl (Zofran) 4 mg IV Q8H PRN PRN PRN Reason: NAUSEA/VOMITING Phenytoin Sodium (Dilantin) 300 mg PO DAILY [facility] Last Admin: 06/27/19 09:07 Dose: 300 mg Documented by: Phenytoin Sodium (Dilantin) 100 mg PO QHS [facility] Last Admin: 06/26/19 21:16 Dose: 100 mg Documented by: Potassium Chloride (K-Dur) 20 meq PO BIDCM [facility] Last Admin: 06/27/19 09:01 Dose: 20 meq Documented by: Psyllium Hydrophilic Mucilloid (Metamucil) 1 packet PO DAILY PRN PRN PRN Reason: Constipation Sodium Chloride () 10 - 40 ml IV UD PRN PRN Reason: SALINE FLUSH Last Admin: 06/27/19 13:07 Dose: 10 ml Documented by: Venlafaxine HCl (Effexor Xr) 75 mg PO DAILY [facility] Last Admin: 06/27/19 09:07 Dose: 75 mg Documented by: Assessment/Plan Patient seen and examined independently. Data reviewed. I agree with the above note by the nurse practitioner. 1. Right lower extremity cellulitis: Area overall appears to be withdraw from the lines of demarcation. The area of pus that is since become unroofed. Continue with broad-spectrum antibiotics for now but anticipate de-escalation here in the near future. Inpatient E&M: 23756 Subs Hosp L2
[2019-06-27] MEDS: 0.9% Saline Lock 10 ML Syringe IV ×2 (13:07→15:00)
--- NOTE | 2019-06-27 15:46 | CHAPLAIN ---
Type of Pastoral Visit _x__ Initial Visit ___ Follow-up Visit ___ On-call Visit ___ General Patient Visit ___ Spiritual Assessment ___ Family Conference ___ Bereavement ___ Rapid Response ___ Code Blue ___ Other (describe below) Pastoral Care Referral From _x__ Patient ___ Family ___ Nurse ___ Physician ___ Nuclear Power Reactor Operator ___ Cardiology Technologist ___ Other (describe below) Sacrament/Intervention _x__ Active listening ___ Anointing ___ Pentecostalism ___ Bereavement ___ Communion _x__ Christiana exploration ___ ___ Life review _x__ Prayer ___ Reconciliation ___ Sacrament of Sick _x__ Supportive presence ___ Wedding ___ Other (describe below) Pastoral Comments
[2019-06-27] MEDS: Atorvastatin Calcium 10 MG Tablet PO (22:18)
[2019-06-27] MEDS: Phenytoin Na 100 MG Capsule PO (22:19)
[2019-06-28 09:31] VITALS: BP 112/58; PULSE 64; RESP 16; TEMP 37.2; O2SAT 96
[2019-06-28 09:48] VITALS: PULSE 64
[2019-06-28] MEDS: Venlafaxine XR 75 MG Capsule PO (09:48)
[2019-06-28] MEDS: hydroCHLOROthiazide 12.5mg 12.5 MG PO ×2 (09:48→21:48)
[2019-06-28] MEDS: Lisinopril 20 MG Tablet PO ×2 (09:48→21:49)
[2019-06-28] MEDS: Metoprolol Tartrate 50 MG Tablet PO (09:48)
[2019-06-28] MEDS: Phenytoin Na 100 MG Capsule 300 MG PO (09:49)
[2019-06-28] MEDS: NIFEdipine 30 MG Tablet PO (09:49)
[2019-06-28] MEDS: cloNIDine HCl 0.2 MG Tablet PO ×2 (09:49→21:48)
[2019-06-28] MEDS: Enoxaparin 40 MG/0.4 ML Syringe SC (09:50)
--- NOTE | 2019-06-28 10:52 | PCM.PN.HOSP ---
Patient Problems: Active and Suspected Problems Cellulitis of right leg (Acute) Reason for Visit: cellulitis Subjective: No new complaints. Still with pain right leg. Vitals/I&O's: Vital Signs Temp Pulse Resp BP Pulse Ox 37.2 C 64 16 112/58 L 96 06/28/19 09:31 06/28/19 09:48 06/28/19 09:31 06/28/19 09:31 06/28/19 09:31 Oxygen Delivery Method Room Air Weight: 106.6 kg Body Mass Index (BMI) 35.8 Intake and Output for Last 24 Hours 06/26/19 06/27/19 06/28/19 23:59 23:59 23:59 Intake Total 2150 / 2150 1560.0 / 1660.0 100 / 100 Output Total 2175 / 2175 2750 / 3325 575 / 575 Balance -25 / -25 -1190.0 / -1665.0 -475 / -475 General: Alert, No apparent distress HEENT: Atraumatic, Normocephalic Oral: Moist Mucosa, No Gingival or Mucosal Lesions/ Ulcerations Neck: No Nodes, Trachea Midline Lungs: Clear to auscultation, Normal air movement, No rhonchi, No wheeze, No rales Cardiovascular: Regular rate, Regular Rhythm, Normal S1, Normal S2, No murmurs Abdomen: Bowel Sounds Present, Soft, Non Tender, Non-Distended, No Hepato-splenomegaly Extremities: No edema, No Calf Tenderness Skin: - - Fading erythema of the right lower extremity overall but is extending slightly upwards up his posterior thigh. Does have a blister in the posterior aspect just distal to the popliteal fossa. Psych/Mental Status: Normal Affect, Appropriate Microbiology Past 72 Hours 06/25/19 16:20 Blood Culture (Wb) - Anticubital Left Blood Culture - Preliminary No growth in 48 hours. 06/25/19 16:02 Blood Culture (Wb) - Anticubital Left Blood Culture - Preliminary No growth in 48 hours. 06/25/19 16:05 Skin - Leg Gram Stain - Final 06/25/19 16:05 Skin - Leg Wound Culture - Preliminary No growth-Final to follow Current Medications Acetaminophen (Tylenol) 650 mg PO Q6H PRN PRN PRN Reason: Pain Score 1-10/Temp > 100.7 F Atorvastatin Calcium (Lipitor) 10 mg PO QHS [facility] Last Admin: 06/27/19 22:18 Dose: 10 mg Documented by: Clonidine (Catapres) 0.2 mg PO BID [facility] Last Admin: 06/28/19 09:49 Dose: 0.2 mg Documented by: Dextrose (D50w Syringe) 0 gm IV X1 PRN; Protocol PRN Reason: Hypoglycemia Enoxaparin Sodium (Lovenox) 40 mg SC DAILY [facility] Last Admin: 06/28/19 09:50 Dose: 40 mg Documented by: Glucagon () 1 mg IM .X1 PRN PRN Reason: Hypoglycemia Hydrochlorothiazide () 12.5 mg PO BID [facility] Last Admin: 06/28/19 09:48 Dose: 12.5 mg Documented by: Vancomycin IV Pharmacy to Dose (1 ea/ Sodium Chloride) 500 mls @ 250 mls/hr IV PRN PRN; Protocol PRN Reason: Rx to Dose Piperacillin Sod/Tazobactam (Sod 3.375 gm/ Sodium Chloride) 50 mls @ 12.5 mls/hr IV Q8 [facility] Last Admin: 06/27/19 22:06 Dose: 12.5 mls/hr Documented by: Vancomycin HCl 1,750 mg/ (Sodium Chloride) 535 mls @ 250 mls/hr IV Q12H [facility] Last Infusion: 06/27/19 16:38 Dose: Infused Documented by: Lisinopril (Zestril) 20 mg PO BID [facility] Last Admin: 06/28/19 09:48 Dose: 20 mg Documented by: Magnesium Hydroxide (Milk Of Magnesia) 30 ml PO DAILY PRN PRN PRN Reason: Constipation Metoprolol Tartrate (Lopressor (Beta Aaron)) 50 mg PO DAILY [facility] Last Admin: 06/28/19 09:48 Dose: 50 mg Documented by: Nifedipine (Procardia Xl) 30 mg PO DAILY [facility] Last Admin: 06/28/19 09:49 Dose: 30 mg Documented by: Nitroglycerin (Nitrostat) 0.4 mg SUBLINGUAL Q5M PRN PRN Reason: CARDIAC/CHEST PAIN Nutritional Formula ([facility] - [place] Flavor) [facility] Admin: 06/28/19 09:47 Dose: 1 packet Documented by: Ondansetron HCl (Zofran) 4 mg IV Q8H PRN PRN PRN Reason: NAUSEA/VOMITING Phenytoin Sodium (Dilantin) 300 mg PO DAILY [facility] Last Admin: 06/28/19 09:49 Dose: 300 mg Documented by: Phenytoin Sodium (Dilantin) 100 mg PO QHS [facility] Last Admin: 06/27/19 22:19 Dose: 100 mg Documented by: Potassium Chloride (K-Dur) 20 meq PO BIDCM [facility] Last Admin: 06/28/19 09:49 Dose: 20 meq Documented by: Psyllium Hydrophilic Mucilloid (Metamucil) 1 packet PO DAILY PRN PRN PRN Reason: Constipation Sodium Chloride () 10 - 40 ml IV UD PRN PRN Reason: SALINE FLUSH Last Admin: 06/27/19 15:00 Dose: 10 ml Documented by: Venlafaxine HCl (Effexor Xr) 75 mg PO DAILY [facility] Last Admin: 06/28/19 09:48 Dose: 75 mg Documented by: STROKE Vital Signs/Narrative: Vital Signs Temp Pulse Resp BP Pulse Ox 06/28/19 09:48 64 06/28/19 09:31 37.2 C 64 16 112/58 L 96 Medical Necessity - Tobacco Use Smoking Status: Never smoker Tobacco Use: Chew Assessment/Plan All Active Problems Cellulitis of right leg (Acute) 1. Right lower extremity cellulitis: Area overall appears to be withdraw from the lines of demarcation. The area of pus that is since become unroofed. Continue with broad-spectrum antibiotics for now but anticipate de-escalation here in the near future. Still with erythema so the plan is to monitor the patient overnight. Given the patient's MRSA swabs were negative. Will change patient over to cefazolin and monitor. Continue with wound care 2. CVA, history of: 3. Seizure disorder: phenytoin 4. VTE prophylaxis: enoxaparin. 5. Disposition: continue to monitor. hopefully home with home care in next 24-48h. Inpatient E&M: 18370 Subs Hosp L2
--- NOTE | 2019-06-28 11:53 | CASEMGMT ---
Per Jojo WILLIAMSON, pt's would like a call to clarify discharge plan at this time. Per Dr. Howell, pt tentative discharge is now / and call to to update at this time. voice no further questions/concerns/needs at this time. Reynaldo WILLIAMSON CM
[2019-06-28] MEDS: Cefazolin 1 GM/50 ML BAG IV ×2 (15:17→21:48)
[2019-06-28 15:58] VITALS: BP 109/60; PULSE 59; RESP 18; TEMP 36.9; O2SAT 99
[2019-06-28 21:43] VITALS: BP 109/59; PULSE 66; RESP 16; TEMP 36.8; O2SAT 95
[2019-06-28] MEDS: Phenytoin Na 100 MG Capsule PO (21:48)
[2019-06-28] MEDS: Atorvastatin Calcium 10 MG Tablet PO (21:49)
[2019-06-28 22:00] VITALS: PULSE 66; RESP 16; O2SAT 95
[2019-06-29 02:53] LABS: Vancomycin, Trough Level 8.1 ug/mL (5.0-15.0)
[2019-06-29 03:40] VITALS: BP 104/63; PULSE 59; RESP 16; TEMP 36.8; O2SAT 96
[2019-06-29 03:50] VITALS: PULSE 59
[2019-06-29] MEDS: Cefazolin 1 GM/50 ML BAG IV (05:36)
--- NOTE | 2019-06-29 09:19 | DCINST_ITS ---
- Discharge Diagnoses Current Active Problems: Current Active and Chronic Problems Cellulitis of right leg (Acute) You will use the following diet at home:: Cardiac Your food should be the consistency of: Regular Your liquids should be the consistency of: Regular/Thin Allergies/Adverse Reactions: Allergies clindamycin HCl [From Cleocin] Adverse Reaction (Verified 06/25/19 15:27) Rash clindamycin palmitate HCl [From Cleocin] Adverse Reaction (Verified 06/25/19 15:27) Rash clindamycin phosphate [From Cleocin] Adverse Reaction (Verified 06/25/19 15:27) Rash Medications to take at Discharge Clonidine HCl [Catapres] 0.2 mg PO BID 07/02/14 Lisinopril/Hydrochlorothiazide [Zestoretic 20/12.5 Tablet] 1 tablet PO BID 07/02/14 Metoprolol Tartrate [Lopressor (beta dominique)] 50 mg PO DAILY 07/02/14 Phenytoin Na [Dilantin] 300 mg PO DAILY 07/02/14 Nifedipine [Nifedipine ER] 30 mg PO DAILY 06/25/19 Phenytoin Sodium Extended [Dilantin] 100 mg PO QHS 06/25/19 Potassium Chloride [Klor-Con M20] 20 meq PO BID 06/25/19 Rosuvastatin Calcium 5 mg PO DAILY 06/25/19 Venlafaxine XR [Effexor Xr] 75 mg PO DAILY 06/25/19 Cephalexin [Keflex] 500 mg PO Q8 #18 cap 06/29/19 The following prescriptions were given: Cephalexin [Keflex] 500 mg PO Q8 #18 cap Transmission Status: Pending to [facility]/pharmacy #[id number] Primary Care Physician: Ana Pope DO [Primary Care Provider] - Within 2 Weeks Test Results: Test results from this visit will be discussed in further detail at your follow- up appointment, if applicable. Proposed Discharge Date: 06/29/19
--- NOTE | 2019-06-29 09:21 | PCM.DC.SUM ---
Discharge Date and Diagnosis - Problem List Patient Problems: Active and Suspected Problems Cellulitis of right leg (Acute) Date of Admission: 06/25/19 Date of Discharge: 06/29/19 - Primary Discharge Diagnosis Active and Suspected Problems Cellulitis of right leg (Acute) - Secondary Discharge Diagnosis Chronic Problems HTN (hypertension) (Chronic) HLD (hyperlipidemia) (Chronic) Seizure (Chronic) CVA (cerebral vascular accident) (Chronic) Hospital Course and Treatment Imaging Results: Clinical Impression(s) from Imaging Studies Tibia/Fibula X-Ray 06/25/19 16:30 IMPRESSION: Diffuse soft tissue edema consider cellulitis. 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 Patient had some bullae on his leg and very faint erythema. Patient was started on broad-spectrum antibiotics and then Deescalated to ceftezole and. Overall has steadily improved. Patient will continue with cephalexin for the next 6days upon discharge. Patient will continue with wound care. Patient will have home health care to assist in wound care. [] Patient Problems: Active and Suspected Problems Cellulitis of right leg (Acute) - Physical Exam Vitals/I&O's: Vital Signs Temp Pulse Resp BP Pulse Ox 36.8 C 59 L 16 104/63 96 06/29/19 03:40 06/29/19 03:50 06/29/19 03:40 06/29/19 03:40 06/29/19 03:40 Oxygen Delivery Method Room Air Weight: 107.4 kg Body Mass Index (BMI) 35.8 Intake and Output for Last 24 Hours 06/27/19 06/28/19 06/29/19 23:59 23:59 23:59 Intake Total 1560.0 / 1660.0 835 / 1797 1501.75 / 1501.75 Output Total 2750 / 3325 1625 / 2900 2275 / 2275 Balance -1190.0 / -1665.0 -790 / -1103 -773.25 / -773.25 General: Alert, Cooperative, No apparent distress HEENT: Atraumatic, Normocephalic Skin: - - Resolving erythema of the right lower extremity. The bullae that was just below the popliteal fossa has since unroofed and is just draining serous fluid. Microbiology Past 72 Hours 06/25/19 16:05 Skin - Leg Gram Stain - Final 06/25/19 16:05 Skin - Leg Wound Culture - Preliminary Coag Negative Staph 06/25/19 16:20 Blood Culture (Wb) - Anticubital Left Blood Culture - Preliminary No growth in 48 hours. 06/25/19 16:02 Blood Culture (Wb) - Anticubital Left Blood Culture - Preliminary No growth in 48 hours. Laboratory Results 06/29/19 02:08: Vancomycin Trough 8.1 Current Medications Acetaminophen (Tylenol) 650 mg PO Q6H PRN PRN PRN Reason: Pain Score 1-10/Temp > 100.7 F Atorvastatin Calcium (Lipitor) 10 mg PO QHS [facility] Last Admin: 06/28/19 21:49 Dose: 10 mg Documented by: Clonidine (Catapres) 0.2 mg PO BID [facility] Last Admin: 06/28/19 21:48 Dose: 0.2 mg Documented by: Dextrose (D50w Syringe) 0 gm IV X1 PRN; Protocol PRN Reason: Hypoglycemia Enoxaparin Sodium (Lovenox) 40 mg SC DAILY [facility] Last Admin: 06/28/19 09:50 Dose: 40 mg Documented by: Glucagon () 1 mg IM .X1 PRN PRN Reason: Hypoglycemia Hydrochlorothiazide () 12.5 mg PO BID [facility] Last Admin: 06/28/19 21:48 Dose: 12.5 mg Documented by: Cefazolin Sodium () 1 gm in 50 mls @ 100 mls/hr IV Q8 CONSTANCE Last Infusion: 06/29/19 06:06 Dose: Infused Documented by: Sodium Chloride () 250 mls @ 15 mls/hr IV .[id number] PRN PRN Reason: Saline Flush Last Infusion: 06/29/19 06:06 Dose: 15 mls/hr Documented by: Sodium Chloride () 250 mls @ 15 mls/hr IV .[id number] PRN PRN Reason: Additional IVPB Infusion Lisinopril (Zestril) 20 mg PO BID [facility] Last Admin: 06/28/19 21:49 Dose: 20 mg Documented by: Magnesium Hydroxide (Milk Of Magnesia) 30 ml PO DAILY PRN PRN PRN Reason: Constipation Metoprolol Tartrate (Lopressor (Beta Aaron)) 50 mg PO DAILY [facility] Last Admin: 06/28/19 09:48 Dose: 50 mg Documented by: Nifedipine (Procardia Xl) 30 mg PO DAILY [facility] Last Admin: 06/28/19 09:49 Dose: 30 mg Documented by: Nitroglycerin (Nitrostat) 0.4 mg SUBLINGUAL Q5M PRN PRN Reason: CARDIAC/CHEST PAIN Nutritional Formula ([place] Flavor) [facility] Last Admin: 06/28/19 17:37 Dose: 1 packet Documented by: Ondansetron HCl (Zofran) 4 mg IV Q8H PRN PRN PRN Reason: NAUSEA/VOMITING Phenytoin Sodium (Dilantin) 300 mg PO DAILY [facility] Last Admin: 06/28/19 09:49 Dose: 300 mg Documented by: Phenytoin Sodium (Dilantin) 100 mg PO QHS [facility] Last Admin: 06/28/19 21:48 Dose: 100 mg Documented by: Potassium Chloride (K-Dur) [facility] Last Admin: 06/28/19 17:37 Dose: 20 meq Documented by: Psyllium Hydrophilic Mucilloid (Metamucil) 1 packet PO DAILY PRN PRN PRN Reason: Constipation Sodium Chloride () 10 - 40 ml IV UD PRN PRN Reason: SALINE FLUSH Last Admin: 06/27/19 15:00 Dose: 10 ml Documented by: Venlafaxine HCl (Effexor Xr) 75 mg PO DAILY [facility] Last Admin: 06/28/19 09:48 Dose: 75 mg Documented by: Discharge Diet: No Restrictions Discharge Activity: Return to Normal Activity Home Medications: Medications to take at Discharge Clonidine HCl [Catapres] 0.2 mg PO BID 07/02/14 Lisinopril/Hydrochlorothiazide [Zestoretic 20/12.5 Tablet] 1 tablet PO BID 07/02/14 Metoprolol Tartrate [Lopressor (beta aaron)] 50 mg PO DAILY 07/02/14 Phenytoin Na [Dilantin] 300 mg PO DAILY 07/02/14 Nifedipine [Nifedipine ER] 30 mg PO DAILY 06/25/19 Phenytoin Sodium Extended [Dilantin] 100 mg PO QHS 06/25/19 Potassium Chloride [Klor-Con M20] 20 meq PO BID 06/25/19 Rosuvastatin Calcium 5 mg PO DAILY 06/25/19 Venlafaxine XR [Effexor Xr] 75 mg PO DAILY 06/25/19 Cephalexin [Keflex] 500 mg PO Q8 #18 cap 06/29/19 Following Prescrptions Were Given to Patient: Cephalexin [Keflex] 500 mg PO Q8 #18 cap Transmission Status: Pending to [id number] Primary Care Physician: Ana Pope DO [Primary Care Provider] - Within 2 Weeks Disposition: Home with Home Health Minutes spent on discharge:: 32 Patient Condition:: Fair Medical Necessity - Tobacco Use Smoking Status: Never smoker Tobacco Use: Chew Meaningful Use Info Meaningful Use Diagnoses (Choose all that apply): None applicable Inpatient E&M: 99696 Disch Hosp
[2019-06-29] MEDS: cloNIDine HCl 0.2 MG Tablet PO (09:34)
[2019-06-29 09:35] VITALS: PULSE 66
[2019-06-29] MEDS: Venlafaxine XR 75 MG Capsule PO (09:35)
[2019-06-29] MEDS: Metoprolol Tartrate 50 MG Tablet PO (09:35)
[2019-06-29] MEDS: hydroCHLOROthiazide 12.5mg 12.5 MG PO (09:35)
[2019-06-29] MEDS: Phenytoin Na 100 MG Capsule 300 MG PO (09:35)
[2019-06-29] MEDS: Lisinopril 20 MG Tablet PO (09:36)
[2019-06-29] MEDS: NIFEdipine 30 MG Tablet PO (09:36)
[2019-06-29 09:40] VITALS: BP 111/64; PULSE 79; RESP 12; TEMP 36.9; O2SAT 97
--- NOTE | 2019-06-29 09:43 | NURSING ---
wound photo: right lower leg
--- NOTE | 2019-06-29 09:44 | NURSING ---
wound photo: right lower leg
--- NOTE | 2019-06-29 09:44 | NURSING ---
wound photo: right lower leg (lateral view)
--- NOTE | 2019-06-29 10:45 | CASEMGMT ---
at [facility] aware that pt will be discharged today and covid transfer tool faxed to [facility] at this time. Reynaldo WILLIAMSON CM
--- NOTE | 2019-06-30 15:26 | CM.UR ---
RN CM Discharge Follow-up Phone Call: SHRUTHI: Simba Strata: 3 Call Date: 06/30/19 Discharge Date: 06/29/19 Time of Call: 15:25 Duration: 4 min [facility] was just recently there to instruct on dressing changes. States she answered any questions she did have. Did get rx States is calling Tuesday to confirm that appt we set up and see if it will be face to face, video or telephone call. Only recommendation she has is associated with her frustration that no physician every called her. States she talked to nurses numerous times. She understands the unique situation and why she couldn't visit however patient has communication impairments d/t previous stroke and he couldn't relay information. Marjan Flaherty RN, CCM.
== END 2019-06-29 12:10 | disposition home health service (06) | DRG 603 ==
LOC: ED 17:41 → PCU 18:22
PROVIDERS: Admitting Provider Internal Medicine; Emergency Provider Emergency Medicine; PCP Internal Medicine
DX: L03.115 Cellulitis of right lower limb (principal); I69.351 Hemiplegia and hemiparesis following cerebral infarction affecting right dominant side; I69.320 Aphasia following cerebral infarction; E78.5 Hyperlipidemia, unspecified; I10 Essential (primary) hypertension; F32.9 Major depressive disorder, single episode, unspecified; G40.909 Epilepsy, unspecified, not intractable, without status epilepticus; I69.398 Other sequelae of cerebral infarction
CPT/HCPCS: 36415; 73590; 80053; 80185; 80202; 83036; 83605; 85025; 85610; 85730; 87040; 87070; 87205; 87640; 93971; 97110; 97116; 97162; 97166; 97530; 97535; 97802; 99283; J7040; J7050; A4216

== ENCOUNTER → 2019-06-25 | Outpatient (CLI) | payer MEDICARE, SELFPAY ==
--- NOTE | 2019-06-25 11:10 | VDLE_ITS ---
Reason For Study: RLE PAIN RIGHT GSV is normal. CFV is compressible, spontaneous, phasic, competent and demonstrates normal augmentation. FV is compressible, spontaneous, phasic, competent and demonstrates normal augmentation. POP V is compressible, spontaneous, phasic, competent and demonstrates normal augmentation. T/P Trunk is compressible. PTV is compressible. RT PerV is compressible. Procedure Exam performed in department. The study was technically difficult. A preliminary report was called and/or faxed to DR. Pope @ 12:00 pm. Interpretation Summary Deep veins of the right lower extremity are patent and compressible segmentally. There is no evidence of right lower extremity deep vein thrombosis. Valvular competence appears intact within the proximal deep venous system on the right . The right great saphenous vein appears patent and compressible segmentally. Ordering Physician: Ana Pope Referring Physician: Ana Pope Performed By: Shayy Morales, ROB, RVT
== END | disposition home or self-care (01) ==
LOC: CVS 11:09
PROVIDERS: PCP Internal Medicine; Referring Provider Internal Medicine; Visit Provider Internal Medicine
DX: M79.661 Pain in right lower leg (principal)
CPT/HCPCS: 93971

== ENCOUNTER 2022-07-14 11:16 | Outpatient (RCR) | payer MEDICARE, SELFPAY ==
--- NOTE | 2022-07-14 14:35 | HP.PTEVAL ---
Patient's Visit Information LITO TSE is a 62 year old M referred to Physical Therapy by Dr. Ana Pope, with a diagnosis of Falls and generalized weakness. Date of Evaluation: 07/14/22 Physical Therapist: Devonte Mcfarland DPT, OCS, CSCS - Visit Plan Frequency: 2x /Week Duration: 4-6 Weeks Plan: pt and given results today and recommended AFO if he will wear it, ex program for ROM, flex, and strength LE and core if he will do it, also benefits of sling to protect R UE and educated on deficits. They will talk it over to see if they wish to pursue a 2x/week x 4-6 week POC to work on Knee ROM hip and knee muscle stretching to I and general strength, trasnfer training and possibly AFO(would need script from doctor for custom if patient agreeable. they will call to let me know their decision. If returns, will focus on HS adn gastroc and quad stretching...knee flexion ROM and hip extension ROM, general strength...trasnfer training steps and floor. AFO is patient desires. - Subjective 2003 stroke adn R sided weakness adn therapy for 6 months. Getting weaker over the winter. Mainor's Noris does much of the talking. She says he struggles as he needs to do things more efficiently. He does not want to be here. Swinging ambulation for 20 years and not much problem. now feels tired and falls more maybe, calling for help more. Needs help to get up off the floor now. No pain. No spinning, Has sensation in his leg but not what it used to be. No cane or walker, would be willing. Had braces for leg according to to keep foot from dropping. hasn't worn in a long time. Had arm sling also due to shoulder long time ago. Sleep is OK. Spends day in shop working on [employer]. Not having any problems out there but things he is in chair more. No regular exercises. Basic ADLs dressing , bathe , shower I. ties own shoes . Can warm up leftovers. cooks meals and cleans house and always has been that way. Has steps with railing and can do them by himself with L, Two steps end sidewalk which he walks around - Objective Patient walks back to PT slowly with R hip externally rotated due to drop foot and circumducts it around, R arm flaccid and hanging at side. he has walked like this for the last 18 years and is happy walking like this and does not fall says he. his disagrees. He has a hard time commnicating his thoughts and questions but knows what he wants to say, she communicates for him often. it is clear that he does not want to be in therapy and his made him due to her concerns. R flaccid. He trasnfers chair I as long as he has arm of the chair to push on. He trasnfers bed I, slow but able to manage. Steps are reciprocal up relying on arms to pull and hard to bend knees far enough to shift FW so places foot out to side. Descending he prefers to use his L actually due to R knee pain and achiness, again very weak on L and relies on UE quite a bit. All that being said, he is mod I in these activities today. he is able with the assist of a support table to trasnfer onto and off of the floor mod I relying on UE. max tightness in hips and knees(limited ROM make it hard to get feet underneath him so he has to plant out to side and pull with UE. HS, quads and piriformis are max tight at -60 90/90 test B. AROM L hip to 90 hip flexion and 20 abduction and 0 extension. No aROM in R LE today except minimal hip movement and knee movement which is weak. Hip 3 and knee 3+ ext adn 3 flexion, no AROM R ankle. L LE strength 4+/5. knee aROM limited to 0-90 B with pain end range of R knee flexion. WFL AROM L ankle. R UE is dysfunctional and does not use it. L UE 4=/5 strength and WFL AROM. Standing balance is able with wide AMY and ec, narrow AMY slightly more challenging but I eo and ec. - Balance/Special Test Scores Lower Extremity Functional Score: 29 - Goals Goal 1:: Knees bent o 110 degrees to make steps easier. adn floor trasnfer with less UE support Goal Time Frame: 4-6 Weeks Goal 2:: I appropriate HEP for knee and hip ROM and stretching and general strength to help limit future degradation of skills Goal Time Frame: 4-6 Weeks Goal 3:: feel he gets around 50% better overall Goal Time Frame: 4-6 Weeks Goal 4:: Steps with L LE without pain in knee Goal Time Frame: 4-6 Weeks - Rehabilitation Potential Physical Therapy Diagnosis: Pt has diminishing mobility ease due to tightness/weakness and ROM deficits. He is stubborn and does not see his problem nor think he needs therapy Rehabilitation Potential: Questionable - Anticipated Interventions Patient/Client Instruction: Educate patient on: Condition, Plan of Care For the Purpose of:: To increase ROM, To improve muscle performance and motor function, To improve gait and locomotor functions Therapeutic Exercise to Include: Strength training, Flexibilty training, Passive ROM, Active ROM For the Purpose of:: To decrease pain, To increase ROM, To improve nutrient delivery to tissue, To improve ability of physical actions for home/community/work/leisure, To improve gait and locomotor functions Manual Therapy Techniques to Include: Mobilization, Passive ROM, Soft tissue mobilization For the Purpose of:: To increase ROM Thank you for the opportunity to evaluate your patient. For Medicare and Medicare HMO plans, please review the plan of care and approve it. It will need to be FAXED BACK to us at [phone] for Medicare purposes. For Medicare only, by signing this I certify the plan of care. Please let me know if there are questions or concerns regarding this plan of care. Physician Signature: Date:
--- NOTE | 2022-09-14 11:50 | HP.PTDCNRP_ITS ---
LITO TSE was seen in my office for initial evaluation on 07/14/22. The following Plan of Care was established for this patient: Initial Frequency: 2x /Week Initial Duration: 4-6 Weeks Patient/Client Instruction: Educate patient on: Condition, Plan of Care For the Purpose of:: To increase ROM, To improve muscle performance and motor function, To improve gait and locomotor functions Therapeutic Exercise to Include: Strength training, Flexibilty training, Passive ROM, Active ROM For the Purpose of:: To decrease pain, To increase ROM, To improve nutrient delivery to tissue, To improve ability of physical actions for ho me/community/work/leisure, To improve gait and locomotor functions Manual Therapy Techniques to Include: Mobilization, Passive ROM, Soft tissue mobilization For the Purpose of:: To increase ROM This patient was last seen in our office 07/14/22. Pertinent comments regarding their Physical therapy will appear below: Pt seen for initial evaluation and POC established. pt and wanted to think about if they wanted to go through PT or AFO. They were to vall if they wished to pursue POC. At this point, it has been over two months and I will discontinue. At this point I will be discontinuing this patient from physical therapy. I would be happy to see this patient again in the future if found appropriate by the physician. Thank you! Devonte Mcfarland, DPT, OCS, CSCS Balance/Gait/Functional tests - Balance/Special Test Scores Lower Extremity Functional Score: 29
== END 2022-07-14 19:00 | disposition home or self-care (01) ==
LOC: PT 11:16
PROVIDERS: PCP Internal Medicine; Referring Provider Internal Medicine; Visit Provider Internal Medicine
DX: R53.1 Weakness (principal); R29.6 Repeated falls
CPT/HCPCS: 97163

== ENCOUNTER → 2022-12-27 | Outpatient (CLI) | payer MEDICARE, SELFPAY ==
[2022-12-27 08:35] LABS: Bacteria 0 SEEN /hpf (None Seen); Mucous, Urine 0 SEEN /hpf (<or=2+); Red Blood Cells-Urine 0 SEEN /hpf (0-5); Squamous Epithelial Cells - UA 0 SEEN /hpf (0-5); White Blood Cells 0 SEEN /hpf (0-5)
[2022-12-27 09:10] LABS: Absolute Lymphocyte Count 1.12 X10^3/uL (0.83-4.51); Basophil# 0.02 X10^3/uL; Basophil% 0.3 % (0-1); Eosinophil# 0.12 X10^3/uL; Eosinophils% 2.1 % (0-5); Hematocrit 41.9 % (40-54); Hemoglobin 13.5 g/dL (13.0-16.5); Lymphocyte # 1.12 X10^3/ul (0.83-4.51); Lymphocyte % 19.4 % (19-41); Mean Corp Hgb Conc 32.2 g/dL (32-36); Mean Corpuscular Hgb 30.1 pg (27.0-32.0); Mean Corpuscular Volume 93.3 fL (80-94); Mean Platelet Vol. 10.6 fl (6.2-12.0); Monocyte# 0.49 X10^3/uL; Monocyte% 8.5 % (0-10); NRBC Flagged by Analyzer 0 % (0-5); Neutrophil # 3.99 X10^3/uL (2.7-7.7); Neutrophil % 69.4 % (47-70); Platelet Count 164 K/mm3 (150-450); RBC Distribution Width SD 48.7 fl (35.1-43.9); Red Blood Count 4.49 M/mm3 (4.6-6.2); White Blood Count 5.8 K/mm3 (4.4-11.0)
[2022-12-27 09:15] LABS: Color, Urine Yellow (Yellow); Glucose, Dipstick Normal (Normal); Ketone-Dipstick Negative (Negative); Leukocyte Esterase-Dipstick 25 /ul (Negative); Nitrite-Dipstick Negative (Negative); Occult Blood-Urine Negative /ul (Negative); Protein-Dipstick Negative (Negative); Urine Bilirubin Dipstick Negative (Negative); Urine Clarity Clear (Clear); Urine Urobilinogen Normal (Normal)
[2022-12-27 09:37] LABS: Microalbumin,Random Urine 13.9 mg/L (NO RANGE EST.)
[2022-12-27 09:41] LABS: AST(SGOT) 17 U/L (15-37); Alanine Aminotransfer ALT/SGPT 20 U/L (16-61); Albumin, Serum 3.4 g/dL (3.2-5.0); Alkaline Phosphatase 73 U/L (45-117); Anion Gap 5 (5-15); BUN 14 mg/dL (7-18); BUN/Creat Ratio 17.5 RATIO (10-20); Calcium,Total 8.6 mg/dL (8.5-10.1); Chloride 106 mmol/L (98-107); Cholesterol 129 mg/dL (200); EST Glomerular Filtration Rate 104 mL/min (>60); Est Glom Filt Rate - Afr Amer 125 mL/min (>60); Globulin 3.5 g/dL (2.2-4.2); Glucose 94 mg/dL (74-106); High Density Lipoprotein 56 mg/dL; PSA,Total - Annual Screen 1.39 ng/mL (0.00-4.00); Protein, Total 6.9 g/dL (6.4-8.2); Sodium Level 140 mmol/L (136-145); Thyroid Stim Hormone (TSH) 3.98 uIU/mL (0.358-3.74); Triglycerides 39 mg/dL; Very Low Density Lipoprotein 8 mg/dL (5-40)
== END | disposition home or self-care (01) ==
LOC: LAB 08:30
PROVIDERS: PCP Internal Medicine; Visit Provider Internal Medicine
DX: I11.9 Hypertensive heart disease without heart failure (principal); E78.5 Hyperlipidemia, unspecified; F32.A Depression, unspecified; Z12.5 Encounter for screening for malignant neoplasm of prostate
CPT/HCPCS: 36415; 80053; 80061; 81001; 82043; 82570; 84153; 84443; 85025; G0103

== ENCOUNTER → 2024-01-09 | Outpatient (CLI) | payer MEDICARE, SELFPAY ==
--- NOTE | 2024-01-09 09:54 | CDU_ITS ---
Reason For Study: Carotid Stenosis Rt. Velocities/BP Lt. Velocities/BP Prox CCA 67.7/9.5 cm/sec. Prox CCA 139.9/15.7 cm/sec. Mid CCA 82.0/10.6 cm/sec. Mid CCA 86.5/12.8 cm/sec. Dist CCA 66.6/10.6 cm/sec. Dist CCA 74.3/13.8 cm/sec. Prox ICA 54.8/10.8 cm/sec. Prox ICA 64.2/13.6 cm/sec. Mid ICA 52.8/12.2 cm/sec. Mid ICA 51.2/12.7 cm/sec. Dist ICA 95.2/17.1 cm/sec. Dist ICA 51.2/12.7 cm/sec. Rt. ICA/CCA = 1.2. Lt. ICA/CCA = 0.7. Prox ECA 102.9/10.6 cm/sec. Prox ECA 78.7/8.4 cm/sec. Rt. Vert. 41.3/7.3 cm/sec. Lt. Vert. 31.0/8.4 cm/sec. Right Extracranial There is homogeneous, smooth atherosclerotic plaque noted in the right common carotid artery. There is heterogeneous, irregular atherosclerotic plaque noted in the right internal carotid artery. There is intimal thickening but no significant atherosclerotic plaque noted in the right external carotid artery. Antegrade flow is noted in the right vertebral artery. Left Extracranial There is homogeneous, smooth atherosclerotic plaque noted in the left common carotid artery. There is intimal thickening but no significant atherosclerotic plaque noted in the left internal carotid artery. The distal left internal carotid artery is not well visualized. There is intimal thickening but no significant atherosclerotic plaque noted in the left external carotid artery. Antegrade flow is noted in the left vertebral artery. VL/Carotid Duplex Ultrasound Interpretation Summary Mild (<50%) stenosis right extracranial internal carotid. Normal left extracranial internal carotid. Patent and antegrade vertebrals bilaterally. Ordering Physician: Ana Pope Referring Physician: Ana Pope Performed By: Gómez Short RVAustin
== END | disposition home or self-care (01) ==
PROVIDERS: PCP Internal Medicine; Referring Provider Internal Medicine; Visit Provider Internal Medicine
DX: I65.23 Occlusion and stenosis of bilateral carotid arteries (principal)
CPT/HCPCS: 93880